=== PATIENT | female | born 1955 | race Caucasian/White ===

== ENCOUNTER → 2017-02-14 | Outpatient (CLI) | payer BC ==
[~2017-02-14] MED LIST: ATV/1 PO; CALC-354 PO; CRAN1CAP6; LISI-461 PO; MULT-190 PO; OMEG10007 PO; PANT40TA PO; POTA10CA28 PO; SIMV20TA2 PO; ZNTT/150 PO; [UNRECOGNIZED DRUG - CODE] OPB
[2017-02-14 17:45] LABS: AST/SGOT 24 U/L (15-37); BLOOD UREA NITROGEN 19 mg/dl (7-18); BUN/CREATININE RATIO 17.4 (10-20); CALCIUM 10.2 mg/dl (8.5-10.1); CARBON DIOXIDE 28 mmol/L (21-32); CHLORIDE 101 mmol/L (98-107); GLUCOSE 122 mg/dl (70-99); POTASSIUM 3.7 mmol/L (3.5-5.1); SODIUM 136 mmol/L (136-145)
[2017-02-14 17:56] LABS: ALKALINE PHOSPHATASE 97 U/L (45-117); ALT/SGPT 36 U/L (12-78); CHOLESTEROL 250 mg/dl (0-200); CHOLESTEROL/HDL RATIO 5.4; HDL CHOLESTEROL 46 mg/dl; LDL CHOLESTEROL CALCULATED 162 mg/dl; TRIGLYCERIDES 212 mg/dl (0-150); VERY LOW DENSITY LIPOPROT CALC 42 mg/dl
[2017-02-15 06:11] LABS: ESTIMATED AVERAGE GLUCOSE 151 mg/dl; HA1C FLAG Normal (Normal)
== END | disposition home or self-care (01) ==
LOC: C.LABPVFM 13:30
PROVIDERS: ATTEND Family Medicine
DX: F41.9 Anxiety disorder, unspecified (principal); E78.5 Hyperlipidemia, unspecified; I10 Essential (primary) hypertension; E87.6 Hypokalemia; E11.9 Type 2 diabetes mellitus without complications

== ENCOUNTER → 2017-07-25 | Outpatient (CLI) | payer BC ==
--- NOTE | 2017-07-25 16:11 | MAMMOGRAPHY REPORT ---
BILATERAL DIGITAL SCREENING MAMMOGRAM TOMOSYNTHESIS WITH CAD: 07/25/2017 CLINICAL HISTORY: Routine screening. TECHNIQUE: Breast tomosynthesis in addition to standard 2D mammography was performed. Current study was also evaluated with a Computer Aided Detection (CAD) system. COMPARISON: Comparison is made to exams dated: 12/22/2015 mammogram, 12/22/2015 ultrasound, 12/14/2015 ma mmogram - [facility], and 10/07/2008. BREAST COMPOSITION: There are scattered areas of fibroglandular density in both breasts. FINDINGS: No suspicious masses, calcifications, or areas of architectural distortion are noted in ei ther breast. There has been no significant interval change compared to prior exams. IMPRESSION: ACR BI-RADS CATEGORY 1: NEGATIVE There is no mammographic evidence of malignancy. A 1 year screening mammogram is recommended. The pa tient will receive written notification of the results. Approximately 10% of breast cancers are not detected with mammography. A negative mammographic report should not delay biopsy if a clinically suggestive mass is present. Maryann Zuniga M.D. ah/:07/25/2017 15:54:15 Touch Up Carver: Douglas PERDOMO(Quyen)(M), [facility] letter sent: Normal 1/2 BI-RADS Code: ACR BI-RADS Category 1: Negative
== END | disposition home or self-care (01) ==
LOC: C.MAMM 13:26
PROVIDERS: ATTEND Family Medicine
DX: Z12.31 Encounter for screening mammogram for malignant neoplasm of breast (principal)

== ENCOUNTER → 2017-09-03 | Outpatient (CLI) | payer BC ==
[2017-09-03 13:06] LABS: ESTIMATED AVERAGE GLUCOSE 140 mg/dl; HA1C FLAG Normal (Normal)
[2017-09-03 16:05] LABS: ALB/GLOB RATIO 0.9 (0.9-2); ALKALINE PHOSPHATASE 94 U/L (45-117); ALT/SGPT 34 U/L (12-78); BLOOD UREA NITROGEN 19 mg/dl (7-18); BUN/CREATININE RATIO 20.3 (10-20); CARBON DIOXIDE 22 mmol/L (21-32); CHLORIDE 107 mmol/L (98-107); CREATININE 0.96 mg/dl (0.60-1.20); GLUCOSE 136 mg/dl (70-99); HDL CHOLESTEROL 47 mg/dl; SODIUM 138 mmol/L (136-145)
[2017-09-03 16:19] LABS: AST/SGOT 23 U/L (15-37); CHOLESTEROL 248 mg/dl (0-200); CHOLESTEROL/HDL RATIO 5.3; LDL CHOLESTEROL CALCULATED 158 mg/dl; TRIGLYCERIDES 214 mg/dl (0-150); VERY LOW DENSITY LIPOPROT CALC 43 mg/dl
== END | disposition home or self-care (01) ==
LOC: C.LABPVFM 08:52
PROVIDERS: ATTEND Family Medicine
DX: E78.5 Hyperlipidemia, unspecified (principal); I10 Essential (primary) hypertension; E87.6 Hypokalemia; E11.9 Type 2 diabetes mellitus without complications

== ENCOUNTER → 2017-09-12 | Outpatient (CLI) | payer BC | END | disposition home or self-care (01) | LOC: C.PAPS 09:15 | PROVIDERS: ATTEND Family Medicine | DX: Z01.419 Encounter for gynecological examination (general) (routine) without abnormal findings (principal) ==

== ENCOUNTER → 2018-02-20 | Outpatient (CLI) | payer OTHER ==
[~2018-02-20] MED LIST changes: +RANI150T85 PO; -ZNTT/150 PO
[2018-02-20 14:26] LABS: ALBUMIN 3.9 gm/dl (3.4-5.0); ALT/SGPT 40 U/L (12-78); AST/SGOT 22 U/L (15-37); BLOOD UREA NITROGEN 25 mg/dl (7-18); CALCIUM 9.2 mg/dl (8.5-10.1); CARBON DIOXIDE 24 mmol/L (21-32); CREATININE 1.01 mg/dl (0.60-1.20); GLUCOSE 143 mg/dl (70-99); POTASSIUM 3.6 mmol/L (3.5-5.1); SODIUM 135 mmol/L (136-145)
[2018-02-20 14:29] LABS: ALKALINE PHOSPHATASE 99 U/L (45-117); CHOLESTEROL 247 mg/dl (0-200); LDL CHOLESTEROL CALCULATED 155 mg/dl; TOTAL PROTEIN 8.2 gm/dl (6.4-8.2)
== END | disposition home or self-care (01) ==
LOC: C.LABPVFM 09:21
PROVIDERS: ATTEND Family Medicine
DX: E78.5 Hyperlipidemia, unspecified (principal); E11.9 Type 2 diabetes mellitus without complications

== ENCOUNTER → 2018-02-25 | Outpatient (CLI) | payer OTHER | END | disposition home or self-care (01) | LOC: C.LABPVFM 13:07 | PROVIDERS: ATTEND Family Medicine | DX: R39.9 Unspecified symptoms and signs involving the genitourinary system (principal) ==

== ENCOUNTER → 2018-04-08 | Day surgery (SDC) | payer OTHER ==
[2018-04-03 08:55] VITALS: Ht 157.5 cm; Wt 72.7 kg
[~2018-04-08] VITALS: Ht 157.5 cm; Wt 72.7 kg
[~2018-04-08] MED LIST changes: -ATV/1 PO; -CRAN1CAP6; +LIDOCAINE HCL 2% 2 ML VIAL (20MG/ML) ONE; -LISI-461 PO; +LISI-788 PO; +MIDAZOLAM HCL 1 MG/ML 2ML VIAL ONE; +ONDANSETRON INJ 2 MG/ML 2 ML VIAL ONE; +PROPOFOL IV EMULSION 10 MG/ML 20 ML VIAL ONE; +SERT50TA PO; +SODIUM CHLORIDE 0.9% 500ML 500 ML IV ONE
--- NOTE | 2018-04-08 08:38 | Endo History and Physical ---
History & Physical Date of Service: April 08, 2018. Chief Complaint: Carl's esophagus Referring Physician: Dr. Burdick History of Present Illness 62 yo CF who presents for EGD secondary to Carl's Esophagus. Past Medical History Arthritis, Anxiety, Reflux, Hypertension Past Surgical History Hx Cardiac Surgery: No Hx Internal Defibrillator: No Hx Pacemaker: No Hx Abdominal Surgery: Yes (TUBAL) Hx of Implantable Prosthesis: No Hx Post-Op Nausea and Vomiting: No Hx Cancer Surgery: No Hx Thoracic Surgery: No Hx Orthopedic: No Hx Urinary Tract Surgery: No Family History None Social History Smoking Status: Former Smoker Hx Substance Use: No Hx Alcohol Use: Yes (RARELY) Allergies Coded Allergies: Clindamycin (Verified Allergy, Unknown, rash, 04/08/18) Current Medications Reported Home Medications Medications Dose Route/Sig Max Daily Dose Days Date Category Zoloft (Sertraline HCl) 50 Mg Tab 50 Mg PO QAM 04/03/18 Reported Zestoretic 20MG/25MG (HCTZ/Lisinopril) Tab 0.5 Tab PO QAM 04/03/18 Reported Zantac (Ranitidine HCl) 150 Mg Tab 1 Tab PO HS 30 03/12/16 Reported Protonix (Pantoprazole Sodium) 40 Mg Tab 40 Mg PO QAM 06/25/15 Reported Similasan Dry Eye Relief (Homeopathic Products) 1 Nile Nile OPB PRN 03/15/15 Reported Caltrate 600+D (Calcium Carbonate-Cholecalcife) 1 Tab Tab 1 Tab PO QAM 03/15/15 Reported [place]-3 (Fish Oil) 1 Ea Cap 1 Cap PO QAM 03/15/15 Reported Ocuvite Preservision (Multivitamins/Minerals) 1 Tab Tab 1 Tab PO QAM 03/15/15 Reported Zocor (Simvastatin) 20 Mg Tab 40 Mg PO HS 03/15/15 Reported Micro-K Ext Rel (Potassium Chloride) 10 Meq Capcr 10 Meq PO QAM 03/15/15 Reported Vital Signs Weight (Kilograms): 72.73 Height (Feet): 5 Height (Inches): 2 Physical Exam General Appearance: WD/WN, no apparent distress Respiratory/Chest: Auscultation: breath sounds normal Cardiovascular: Heart Auscultation: RRR Abdomen: Bowel Sounds: normal Inspection & Palpation: soft, non-distended, no tenderness, guarding & rebound Assessment and Plan Assessment: 62 yo CF who presents for EGD secondary to Carl's Esophagus. Plan: Proceed with EGD.
--- NOTE | 2018-04-08 09:23 | Discharge Instructions ---
Endoscopy Patient Instructions Date / Procedure(s) Performed April 08, 2018. EGD Allergy Information Coded Allergies: Clindamycin (Verified Allergy, Unknown, rash, 04/08/18) Discharge Date / Findings April 08, 2018. Carl's Esophagus s/p biopsies Hiatal hernia Medication Instructions OK to resume all medications today as prescribed Reported Home Medications Medications Dose Route/Sig Max Daily Dose Days Date Category Zoloft (Sertraline HCl) 50 Mg Tab 50 Mg PO QAM 04/03/18 Reported Zestoretic 20MG/25MG (HCTZ/Lisinopril) Tab 0.5 Tab PO QAM 04/03/18 Reported Zantac (Ranitidine HCl) 150 Mg Tab 1 Tab PO HS 30 03/12/16 Reported Protonix (Pantoprazole Sodium) 40 Mg Tab 40 Mg PO QAM 06/25/15 Reported Similasan Dry Eye Relief (Homeopathic Products) 1 Nile Nile OPB PRN 03/15/15 Reported Caltrate 600+D (Calcium Carbonate-Cholecalcife) 1 Tab Tab 1 Tab PO QAM 03/15/15 Reported [place]-3 (Fish Oil) 1 Ea Cap 1 Cap PO QAM 03/15/15 Reported Ocuvite Preservision (Multivitamins/Minerals) 1 Tab Tab 1 Tab PO QAM 03/15/15 Reported Zocor (Simvastatin) 20 Mg Tab 40 Mg PO HS 03/15/15 Reported Micro-K Ext Rel (Potassium Chloride) 10 Meq Capcr 10 Meq PO QAM 03/15/15 Reported Provider Instructions Activity Restrictions - No exercising or heavy lifting for 24 hours. - Do not drink alcohol the day of the procedure. - Do not drive a car or operate machinery until the day after the procedure. - Do not make any important decisions or sign important papers in 24 hours after the procedure. Following Day: - Return to full activity which may include returning to work/school. Diet Start your diet with liquids and light foods (jello, soup, juice, toast). Then eat your usual diet if not nauseated. Treatment For Common After Affects For mild abdominal pain, bloating, or excessive gas: - Rest - Eat lightly - Lie on right side Follow-Up Information Follow-up with Rena Burdick as scheduled Anesthesia Information What You Should Know You have had a procedure that required some medicine to reduce anxiety and discomfort. This treatment is called moderate sedation. After receiving the treatment, you may be sleepy, but you will be able to breathe on your own. The effects of the treatment may last for several hours. Follow these instructions along with Activity/Diet recommendations noted above: * Do NOT do anything where dizziness or clumsiness would be dangerous. * Rest quietly at home today, then you can be up and about tomorrow. * Have a responsible person stay with you the rest of today. * You may have had an I.V. today. If so, you may take the dressing off later today. Recommendations Call your doctor if: * Trouble breathing * Continuous vomiting for more than 24 hours * Temperature above 101 degrees * Severe abdominal pain or bloating * Pain not relieved by pain medicine ordered * There is increased drainage or redness from any incision * A large amount of rectal bleeding greater than 2-3 tablespoons. (If you had a polyp/s removed or have hemorrhoids, a small amount of blood - from the rectum is to be expected.) * You have any unanswered questions or concerns. IN THE EVENT OF A SERIOUS EMERGENCY, GO TO THE NEAREST EMERGENCY ROOM Your discharge instructions were prepared by provider Vicente Gonzales. Patient Instructions Signature Page Laxmi Velazco Patient (or Guardian) Signature/Date: I have read and understand the instructions given to me by my caregivers. Caregiver/RN/Doctor Signature/Date: The above-named patient and/or guardian has received patient instructions on this date. + Original Patient Signature Page (only) stays with chart. Please make copy for patient.
--- NOTE | 2018-04-08 09:29 | GI REPORT ---
Patient Name: Laxmi Velazco Procedure Date: 04/08/2018 9:03 AM Date of : 1955 Admit Type: Outpatient Age: 62 Gender: Female Attending MD: Vicente Gonzales DO Procedure: Upper GI endoscopy Providers: Vicente Gonzales DO Referring MD: Rena Burdick Indications: Follow-up of Carl's esophagus Medicines: Monitored Anesthesia Care Complications: No immediate complications. Estimated Blood Loss: Estimated blood loss: none. Procedure: Pre-Anesthesia Assessment: - Prior to the procedure, a History and Physical was performed, and patient medications and allergies were reviewed. The patient's tolerance of previous anesthesia was also reviewed. The risks and benefits of the procedure and the sedation options and risks were discussed with the patient. All questions were answered, and informed consent was obtained. Prior Anticoagulants: The patient has taken no previous anticoagulant or antiplatelet agents. ASA Grade Assessment: III - A patient with severe systemic disease. After reviewing the risks and benefits, the patient was deemed in satisfactory condition to undergo the procedure. After obtaining informed consent, the endoscope was passed under direct vision. Throughout the procedure, the patient's blood pressure, pulse, and oxygen saturations were monitored continuously. The scope was introduced through the mouth, and advanced to the second part of duodenum. The upper GI endoscopy was accomplished without difficulty. The patient tolerated the procedure well. Findings: There were esophageal mucosal changes consistent with short-segment Carl's esophagus present in the distal esophagus. The maximum longitudinal extent of these mucosal changes was 2 cm in length. Mucosa was biopsied with a cold forceps for histology. A small hiatal hernia was present. The examined duodenum was normal. Impression: - Esophageal mucosal changes consistent with short-segment Carl's esophagus. Biopsied. - Small hiatal hernia. - Normal examined duodenum. Recommendation: - Resume previous diet. - Continue present medications. - Await pathology results. - Return to primary care physician as previously scheduled. Vicente Gonzales DO 04/08/2018 9:28:42 AM This report has been signed electronically. Note Initiated On: 04/08/2018 9:03 AM Number of Addenda: 0 I attest to the content of the Intraoperative Record and orders documented therein, exceptions below {[id number]}
--- NOTE | 2018-04-08 09:42 | Anesthesiology Progress Note ---
Anesthesia Post Op Note Date & Time April 08, 2018 at 09:42 Vital Signs Pain Intensity: 0 Vital Signs Past 12 Hours Date Time Temp Pulse Resp B/P (MAP) Pulse Ox O2 Delivery O2 Flow Rate FiO2 04/08/18 09:39 82 18 134/81 (98) 95 Room Air 04/08/18 09:24 93 16 108/55 (72) 95 Room Air 04/08/18 08:43 37.0 92 18 147/85 (105) 95 Room Air Notes Mental Status: alert / awake / arousable, participated in evaluation Pt Amnestic to Procedure: Yes Nausea / Vomiting: adequately controlled Pain: adequately controlled Airway Patency, RR, SpO2: stable & adequate BP & HR: stable & adequate Hydration State: stable & adequate Anesthetic Complications: no major complications apparent
[2018-04-08 09:54] VITALS: BP 142/87; PULSE 79; O2SAT 96
== END | disposition home or self-care (01) ==
LOC: C.GI 08:15
PROVIDERS: ATTEND Internal Medicine
DX: K22.70 Barrett's esophagus without dysplasia (principal); K21.9 Gastro-esophageal reflux disease without esophagitis; K44.9 Diaphragmatic hernia without obstruction or gangrene; E11.9 Type 2 diabetes mellitus without complications; E78.5 Hyperlipidemia, unspecified; I10 Essential (primary) hypertension; F41.9 Anxiety disorder, unspecified; F32.9 Major depressive disorder, single episode, unspecified; M19.90 Unspecified osteoarthritis, unspecified site; Z87.891 Personal history of nicotine dependence; Z98.51 Tubal ligation status; Z88.1 Allergy status to other antibiotic agents; Z79.899 Other long term (current) drug therapy